=== PATIENT | female | born 1935 | race Caucasian/White ===

== ENCOUNTER 2023-10-20 07:06 | Emergency (ER) | payer OTHER ==
[~2023-10-20] VITALS: Ht 160 cm; Wt 71.7 kg
[~2023-10-20 07:06] MED LIST: ALTACE5 MG PO; TOPROL XL100 MG PO
[2023-10-20] MEDS ORDERED: LOSARTAN POTASS50 MG PO (08:11)
[2023-10-20] MEDS ORDERED: CARVEDILOL12.5 M1 PO (08:11)
[2023-10-20] MEDS ORDERED: BIOFLEX TABLET1 EACH (08:15)
[2023-10-20] MEDS ORDERED: MAXIMUM D3325 MCG (08:15)
[2023-10-20] MEDS ORDERED: FOLIC ACID0.8 M1 (08:15)
[2023-10-20] MEDS ORDERED: ALENDRONATE SOD70 MG PO (08:16)
[2023-10-20] MEDS ORDERED: CALCIUM500 M1 (08:16)
[2023-10-20] MEDS ORDERED: PANTOPRAZOLE SO40 M2 PO (08:16)
== END 2023-10-20 08:45 | disposition home or self-care (01) ==
LOC: ER 07:07
DX: L30.8 Other specified dermatitis (principal)